=== PATIENT | female | born 1990 | race African-American/Black ===

== ENCOUNTER 2016-11-26 22:31 | Emergency (ER) | payer MEDICAID ==
[~2016-11-26] VITALS: Ht 160 cm; Wt 113.6 kg
[2016-11-26 22:34] VITALS: BP 129/87; PULSE 90; RESP 15; TEMP 99.3; O2SAT 98
[2016-11-26] MEDS ORDERED: METF500T PO (23:09)
[2016-11-26] MEDS ORDERED: PRED20 PO (23:09)
--- NOTE | 2016-11-26 23:50 | PD ---
HPI Chief Complaint: Back/ Neck Pain or Injury Time Seen by Provider: 23:35 Travel History International Travel<30 days: No Contact w/Intl Traveler<30days: No Traveled to known affect area: No History of Present Illness HPI 36-year-old female complains of headache, low back pain, dizziness and decrease in urine output. Patient states that she has persistent aching low back pain for the past 3 days. Patient states the pain is aching pain and worse with movement. Patient denies any recent back injury. Patient states that she started having headache since this morning. Patient states the headache mild aching headache frontal headache. Patient denies any visual change. Patient denies any neck pain. Patient denies any chest pain or shortness of breath. Patient denies abdominal pain. Patient denies any focal weakness or numbness of extremity. Patient states that she has history of lupus and on prednisone 20 mg daily. Patient has history of type 2 diabetes and on metformin. Patient states that she has not checked her blood sugar recently. PFSH Past Medical History Autoimmune Disease: Yes (LUPUS ) Diabetes: Yes Patient Takes Glucophage: Yes (METFORMIN ) Deep Vein Thrombosis: Yes Tetanus Vaccination: > 5 Years Influenza Vaccination: No ?: Not LMP: 09/17/2016 Past Surgical History Section: Yes (*2) Social History Alcohol Use: No Tobacco Use: No Substance Use: No Allergies-Medications (Allergen,Severity, Reaction): Coded Allergies: naproxen (Verified Allergy, Severe, 11/26/16) SOB. HIVES tramadol (Verified Allergy, Severe, 11/26/16) SOB, HIVES Reported Meds & Prescriptions Reported Meds & Active Scripts Active Reported Metformin (Metformin HCl) 500 Mg Tab 500 Mg PO BIDPC With meals Prednisone 20 Mg Tab 20 Mg PO BID Review of Systems General / Constitutional: No: Fever Eyes: No: Visual changes HENT: Positive: Headaches Cardiovascular: No: Chest Pain or Discomfort Respiratory: No: Shortness of Breath Gastrointestinal: No: Abdominal Pain Genitourinary: No: Dysuria Musculoskeletal: No: Pain Skin: No Rash Neurologic: No: Weakness Psychiatric: No: Depression Endocrine: No: Polydipsia Hematologic/Lymphatic: No: Easy Bruising Physical Exam Narrative GENERAL: Well-nourished, well-developed patient. SKIN: Focused skin assessment warm/dry. HEAD: Normocephalic. EYES: No scleral icterus. No injection or drainage. Pupils 3 mm equal reactive. NECK: Supple, trachea midline. No JVD or lymphadenopathy. No meningismus CARDIOVASCULAR: Regular rate and rhythm without murmurs, gallops, or rubs. RESPIRATORY: Breath sounds equal bilaterally. No accessory muscle use. GASTROINTESTINAL: Abdomen soft, non-tender, nondistended. MUSCULOSKELETAL: No cyanosis, or edema. BACK: Mild to moderate tenderness on palpation paraspinal area lumbar spine, without obvious deformity. No CVA tenderness. Negative straight leg raising. Neurologic exam: Patient's awake, alert oriented 3. No obvious focal neurological deficit. Data Data Last Documented VS Vital Signs Date Time Temp Pulse Resp B/P (MAP) Pulse Ox O2 Delivery O2 Flow Rate FiO2 11/26/16 23:05 (101) 11/26/16 22:34 99.3 90 15 98 Room Air Orders Orders Urinalysis - C+S If Indicated (11/26/16 23:42) Ed Urine Pregnancytest Poc (11/26/16 23:42) Ct Lumb Spine W/O Contrast (11/26/16 ) Labs Laboratory Tests Test 11/26/16 23:58 Urine Color YELLOW Urine Turbidity HAZY Urine pH 6.0 Urine Specific [place] 1.030 Urine Protein TRACE mg/dL Urine Glucose (UA) NEG mg/dL Urine Ketones NEG mg/dL Urine Occult Blood NEG Urine Nitrite NEG Urine Bilirubin NEG Urine Urobilinogen LESS THAN 2.0 MG/DL Urine Leukocyte Esterase NEG Urine RBC 1 /hpf Urine WBC 2 /hpf Urine Squamous Epithelial Cells 8 /hpf Urine Bacteria RARE /hpf Urine Mucus FEW /lpf Microscopic Urinalysis Comment CULT NOT INDICATED MDM Medical Decision Making Medical Screen Exam Complete: Yes Emergency Medical Condition: Yes Interpretation(s) Last Impressions Lumbar Spine CT 11/26/16 0000 Signed Impressions: Service Date/Time: Sunday, November 27, 2016 00:01 - CONCLUSION: Normal examination. Jose Herrera MD 1:22 AM. UA is negative. Differential Diagnosis Differential diagnosis including tension headache, cluster headache, migraine headache, lumbar strain, fracture, HNP, UTI, dehydration. Narrative Course 26-year-old female with headache, low back pain and decreasing urine output. Diagnosis Primary Impression: Lumbar strain Qualified Codes: S39.012A - Strain of muscle, fascia and tendon of lower back , initial encounter Additional Impression: Cephalgia Qualified Codes: R51 - Headache Patient Instructions: General Instructions Additional Instructions: Take medications as directed for pain and headache. Follow-up with personal physician. Return if worse. Med/Other Pt SpecificInfo: Prescription(s) given Scripts Methocarbamol (Robaxin) 750 Mg Tab 750 MG PO QID for Pain, #40 TAB 0 Refills Prov: Delvis Rivera MD 11/27/16 Nxekablixx-Wqkjrqjjcxtgm-Jhplysyd (Fioricet) 50-300-40 Mg Cap 1-2 CAP PO Q6H Y for HEADACHE, #20 CAP 0 Refills Prov: Delvis Rivera MD 11/27/16 Disposition: 01 DISCHARGE HOME Condition: Stable Delvis Rivera MD Nov 26, 2016 23:50
[2016-11-27 00:17] LABS: BACTERIA, URINE RARE /hpf; BLOOD, URINE NEG (NEG); GLUCOSE,URINE NEG (NEG); KETONE, URINE NEG (NEG); MUCUS URINE FEW /lpf (OCC); NITRITE,URINE NEG (NEG); SQUAMOUS EPITHELIAL CELL URINE 8 /hpf (0-5); URINE COLOR YELLOW (YELLW/STRAW)
[2016-11-27 00:18] LABS: COMMENT (UR) CULT NOT INDICATED; CULTURE IF INDICATED CULT NOT INDICATED
--- NOTE | 2016-11-27 00:27 | RADRPT ---
EXAM DATE/TIME: 11/27/2016 00:01 [facility] COMPARISON: No previous studies available for comparison. INDICATIONS : Lower back pain. RADIATION DOSE: 51.54 CTDIvol (mGy) ; Patient body habitus MEDICAL HISTORY : None SURGICAL HISTORY : None. ENCOUNTER: Initial ACUITY: 1 day PAIN SCALE: 7/10 LOCATION: Paraspinal TECHNIQUE: Volumetric scanning of the lumbar spine was performed. Multiplanar reconstructions in the sagittal, coronal and oblique axial planes were performed. Using automated exposure control and adjustment of the mA and/or kV according to patient size, radiation dose was kept as low as reasonably achievable t o obtain optimal diagnostic quality images. DICOM format image data is available electronically for review and comparison. FINDINGS: VERTEBRAE: Normal vertebral body height. ALIGNMENT: No evidence of subluxation. T12-L1: The thecal sac has a normal diameter. No evidence of disc bulge or protrusion. The neural foramina are patent bilaterally. L1-L2: The thecal sac has a normal diameter. No evidence of disc bulge or protrusion. The neural foramina are patent bilaterally. L2-L3: The thecal sac has a normal diameter. No evidence of disc bulge or protrusion. The neural foramina are patent bilaterally. L3-L4: The thecal sac has a normal diameter. No evidence of disc bulge or protrusion. The neural foramina are patent bilaterally. L4-L5: The thecal sac has a normal diameter. No evidence of disc bulge or protrusion. The neural foramina are patent bilaterally. L5-S1: The thecal sac has a normal diameter. No evidence of disc bulge or protrusion. The neural foramina are patent bilaterally. CONCLUSION: Normal examination. Jose Herrera MD on November 27, 2016 at 0:26 Board Certified Radiologist. This report was verified electronically.
[2016-11-27] MEDS ORDERED: BUTA1CAP PO (01:28)
[2016-11-27] MEDS ORDERED: ROBA750T PO (01:28)
[2016-11-27 02:06] VITALS: BP 124/56; PULSE 86; RESP 18; O2SAT 98
== END 2016-11-27 02:26 | disposition home or self-care (01) ==
LOC: NEPE 22:31
DX: S39.012A Strain of muscle, fascia and tendon of lower back, initial encounter (principal); R51 Headache; R42 Dizziness and giddiness; M32.9 Systemic lupus erythematosus, unspecified; E11.9 Type 2 diabetes mellitus without complications; Z86.718 Personal history of other venous thrombosis and embolism; X58.XXXA Exposure to other specified factors, initial encounter; Z79.899 Other long term (current) drug therapy; Z88.5 Allergy status to narcotic agent
CPT/HCPCS: 72131; 81001; 84703; 99284

== ENCOUNTER 2016-12-22 03:42 | Emergency (ER) | payer MEDICAID ==
[~2016-12-22 03:42] MED LIST: BUTA1CAP PO; METF500T PO; PRED20 PO; ROBA750T PO
[2016-12-22 03:43] VITALS: BP 127/83; PULSE 82; RESP 16; TEMP 97.8; O2SAT 98
--- NOTE | 2016-12-22 06:03 | PD ---
HPI Chief Complaint: Pain: Acute or Chronic Time Seen by Provider: 05:56 Travel History International Travel<30 days: No Contact w/Intl Traveler<30days: No History of Present Illness HPI The patient is a 26 year old female who presents to the [facility] emergency department with a history of reportedly explaining to the nurse that she was experiencing lupus flare. Unfortunately, prior to my assessment the patient, the patient decided to leave AGAINST MEDICAL ADVICE. PFSH Past Medical History Narrative Medical The patient's past medical history is significant for systemic lupus erythematosus, diabetes mellitus Autoimmune Disease: Yes (LUPUS ) Diabetes: Yes Patient Takes Glucophage: No Diminished Hearing: No Deep Vein Thrombosis: Yes Hypertension: Yes Tetanus Vaccination: Unknown Influenza Vaccination: No ?: Not LMP: 11/17/16 Past Surgical History Narrative Surgical The patient's past surgical history is significant for 2 prior C-sections. Section: Yes (*2) Social History Alcohol Use: No Tobacco Use: No Substance Use: No Allergies-Medications (Allergen,Severity, Reaction): Coded Allergies: naproxen (Verified Allergy, Severe, 12/22/16) SOB. HIVES tramadol (Verified Allergy, Severe, 12/22/16) SOB, HIVES Reported Meds & Prescriptions Reported Meds & Active Scripts Active Fioricet (Unxgmwtzwk-Trjdkvpnyzhnm-Ygvqdzmf) 50-300-40 Mg Cap 1-2 Cap PO Q6H PRN Reported Metformin (Metformin HCl) 500 Mg Tab 500 Mg PO BIDPC With meals Prednisone 20 Mg Tab 20 Mg PO BID Review of Systems ROS Limitations: Other: (left AMA) Physical Exam Exam Limitations: Left before Exam Complete Narrative The patient left prior to her physical examination being completed. Data Data Last Documented VS Vital Signs Date Time Temp Pulse Resp B/P (MAP) Pulse Ox O2 Delivery O2 Flow Rate FiO2 12/22/16 06:29 12/22/16 06:17 18 99 Room Air 12/22/16 03:43 97.8 82 Orders Orders Complete Blood Count With Diff (12/22/16 06:01) Comprehensive Metabolic Panel (12/22/16 06:01) Lipase (12/22/16 06:01) Urinalysis - C+S If Indicated (12/22/16 06:01) W[place]gren Sedimentation Rate (12/22/16 06:01) Magnesium (Mg) (12/22/16 06:01) Iv Access Insert/Monitor (12/22/16 06:01) Ecg Monitoring (12/22/16 06:01) Oximetry (12/22/16 06:01) Ed Urine Pregnancytest Poc (12/22/16 06:01) Labs Laboratory Tests Test 12/22/16 06:03 White Blood Count 5.0 TH/MM3 Red Blood Count 4.72 MIL/MM3 Hemoglobin 13.4 GM/DL Hematocrit 40.1 % Mean Corpuscular Volume 85.0 FL Mean Corpuscular Hemoglobin 28.5 PG Mean Corpuscular Hemoglobin Concent 33.5 % Red Cell Distribution Width 14.1 % Platelet Count 231 TH/MM3 Mean Platelet Volume 8.6 FL Neutrophils (%) (Auto) 63.5 % Lymphocytes (%) (Auto) 25.8 % Monocytes (%) (Auto) 7.1 % Eosinophils (%) (Auto) 3.2 % Basophils (%) (Auto) 0.4 % Neutrophils # (Auto) 3.2 TH/MM3 Lymphocytes # (Auto) 1.3 TH/MM3 Monocytes # (Auto) 0.4 TH/MM3 Eosinophils # (Auto) 0.2 TH/MM3 Basophils # (Auto) 0.0 TH/MM3 CBC Comment DIFF FINAL Differential Comment Erythrocyte Sedimentation Rate 28 mm/hr Urine Color YELLOW Urine Turbidity HAZY Urine pH 5.5 Urine Specific [place] 1.023 Urine Protein NEG mg/dL Urine Glucose (UA) NEG mg/dL Urine Ketones NEG mg/dL Urine Occult Blood NEG Urine Nitrite NEG Urine Bilirubin NEG Urine Urobilinogen LESS THAN 2.0 MG/DL Urine Leukocyte Esterase NEG Urine RBC LESS THAN 1 /hpf Urine WBC 1 /hpf Urine Squamous Epithelial Cells 5 /hpf Microscopic Urinalysis Comment CULT NOT INDICATED Blood Urea Nitrogen 13 MG/DL Creatinine 0.63 MG/DL Random Glucose 105 MG/DL Total Protein 7.1 GM/DL Albumin 3.1 GM/DL Calcium Level 8.3 MG/DL Magnesium Level 1.9 MG/DL Alkaline Phosphatase 57 U/L Aspartate Amino Transf (AST/SGOT) 19 U/L Alanine Aminotransferase (ALT/SGPT) 16 U/L Total Bilirubin 0.2 MG/DL Sodium Level 138 MEQ/L Potassium Level 3.8 MEQ/L Chloride Level 106 MEQ/L Carbon Dioxide Level 25.1 MEQ/L Anion Gap 7 MEQ/L Estimat Glomerular Filtration Rate 140 ML/MIN Lipase 254 U/L MDM Medical Decision Making Medical Screen Exam Complete: Yes Emergency Medical Condition: Yes Medical Record Reviewed: Yes Differential Diagnosis Viral syndrome, versus exacerbation of systemic lupus erythematosus, versus arthritis Narrative Course During the course of the patients emergency department visit, the patient had IV access obtained and blood work sent for analysis. The patients laboratory studies were pending at the time that the patient elected to leave AGAINST MEDICAL ADVICE. The patient reports that she has to take her children to school. She reports that she will follow-up with her primary care physician. AMA: The risks of leaving against medical advice without further evaluation treatment were discussed with the patient. These risks include cardiac dysfunction, cardiac dysrhythmia, possible heart attack, possible stroke or . The patient indicated understanding of these risks and appeared to have the capacity to make this decision. Diagnosis Primary Impression: Left against medical advice Referrals: Primary Care Physician 1 day Patient Instructions: General Instructions Med/Other Pt SpecificInfo: No Change to Meds Disposition: 07 AGAINST MEDICAL ADVICE Condition: Stable Prema Schneider MD Dec 22, 2016 06:03
[2016-12-22 06:17] VITALS: RESP 18; O2SAT 99
[2016-12-22 06:25] LABS: BLOOD, URINE NEG (NEG); GLUCOSE,URINE NEG (NEG); KETONE, URINE NEG (NEG); NITRITE,URINE NEG (NEG); PH, URINE 5.5 (5.0-8.5); SQUAMOUS EPITHELIAL CELL URINE 5 /hpf (0-5); URINE COLOR YELLOW (YELLW/STRAW)
[2016-12-22 06:27] LABS: COMMENT (UR) CULT NOT INDICATED; CULTURE IF INDICATED CULT NOT INDICATED
[2016-12-22 06:28] LABS: AUTOMATED NEUTROPHIL # 3.2 TH/MM3 (1.8-7.7); BASOPHIL % 0.4 % (0.0-2.0); EOSINOPHIL # 0.2 TH/MM3 (0-0.4); EOSINOPHIL % 3.2 % (0.0-4.0); HEMATOCRIT 40.1 % (35.0-46.0); HEMO FLAGS DIFF FINAL; LYMPH % 25.8 % (9.0-44.0); LYMPHOCYTE # 1.3 TH/MM3 (1.0-4.8); MEAN CORPUSCULAR HEMOGLOBIN 28.5 PG (27.0-34.0); MEAN CORPUSCULAR HGB CONC 33.5 % (32.0-36.0); MONO % 7.1 % (0.0-8.0); NEUT % 63.5 % (16.0-70.0); PLATELET COUNT 231 TH/MM3 (150-450); RED BLOOD COUNT 4.72 MIL/MM3 (4.00-5.30); RED CELL DISTRIBUTION WIDTH 14.1 % (11.6-17.2)
[2016-12-22 06:51] LABS: ALT (GPT) 16 U/L (10-53)
[2016-12-22 06:53] LABS: ALKALINE PHOSPHATASE 57 U/L (45-117); TOTAL BILIRUBIN ADULT 0.2 MG/DL (0.2-1.0)
[2016-12-22 06:56] LABS: ANION GAP 7 MEQ/L (5-15); AST (GOT) 19 U/L (15-37); BICARBONATE 25.1 MEQ/L (21.0-32.0); BLOOD UREA NITROGEN 13 MG/DL (7-18); CHLORIDE 106 MEQ/L (98-107); GLOMERULAR FILTRATION RATE 140 ML/MIN (>89); MAGNESIUM 1.9 MG/DL (1.5-2.5); POTASSIUM 3.8 MEQ/L (3.5-5.1); SODIUM (NA) 138 MEQ/L (136-145)
== END 2016-12-22 06:24 | disposition left against medical advice (07) ==
LOC: NEPC 03:42
DX: M32.9 Systemic lupus erythematosus, unspecified (principal); E11.9 Type 2 diabetes mellitus without complications; I10 Essential (primary) hypertension; Z79.899 Other long term (current) drug therapy; Z88.5 Allergy status to narcotic agent; Z86.718 Personal history of other venous thrombosis and embolism; Z88.6 Allergy status to analgesic agent
CPT/HCPCS: 80053; 81001; 83690; 83735; 84703; 85025; 85652; 99283

== ENCOUNTER 2017-02-08 13:17 | Emergency (ER) | payer MEDICAID ==
[~2017-02-08 13:17] MED LIST changes: -ROBA750T PO
[2017-02-08 13:26] VITALS: BP 126/73; PULSE 72; RESP 15; TEMP 98.2; O2SAT 98
[2017-02-08] MEDS ORDERED: PRED10 PO (14:10)
[2017-02-08] MEDS ORDERED: TYLETAB34 PO (14:10)
[2017-02-08] MEDS ORDERED: RANI150T PO (14:10)
[2017-02-08] MEDS ORDERED: METO25TA3 PO (14:10)
[2017-02-08] MEDS ORDERED: ASPI81TA81 (14:10)
[2017-02-08 14:13] LABS: AUTOMATED NEUTROPHIL # 6.2 TH/MM3 (1.8-7.7); BASOPHIL % 0.3 % (0.0-2.0); EOSINOPHIL % 0.1 % (0.0-4.0); HEMATOCRIT 41.2 % (35.0-46.0); HEMO FLAGS DIFF FINAL; LYMPH % 7.3 % (9.0-44.0); LYMPHOCYTE # 0.5 TH/MM3 (1.0-4.8); MEAN CELL VOLUME 84.2 FL (80.0-100.0); MEAN CORPUSCULAR HEMOGLOBIN 27.9 PG (27.0-34.0); MEAN CORPUSCULAR HGB CONC 33.2 % (32.0-36.0); MONO % 1.1 % (0.0-8.0); NEUT % 91.2 % (16.0-70.0); PLATELET COUNT 287 TH/MM3 (150-450); WHITE BLOOD COUNT 6.8 TH/MM3 (4.0-11.0)
[2017-02-08] MEDS ORDERED: SODIUM CHLOR 0.9% 1000 ML INJ 1,000 ML IV SCH (14:16)
[2017-02-08 14:27] LABS: BICARBONATE 25.2 MEQ/L (21.0-32.0); POTASSIUM 3.6 MEQ/L (3.5-5.1)
[2017-02-08] MEDS ORDERED: MECLIZINE HCL 25 MG TAB PO ONE (14:30)
--- NOTE | 2017-02-08 14:55 | RADRPT ---
EXAM DATE/TIME: 02/08/2017 14:33 [facility] COMPARISON: No previous studies available for comparison. INDICATIONS : Patient states shortness of breath. MEDICAL HISTORY : Diabetes mellitus type II. Hypertension Lupus SURGICAL HISTORY : None. ENCOUNTER: Initial ACUITY: 1 day PAIN SCORE: 0/10 LOCATION: Bilateral chest FINDINGS: A single view of the chest demonstrates the lungs to be symmetrically aerated without evidence of mas s, infiltrate or effusion. The cardiomediastinal contours are unremarkable. Osseous structures are intact. CONCLUSION: No acute disease. Camron Correa MD on February 08, 2017 at 14:53 Board Certified Radiologist. This report was verified electronically.
[2017-02-08 15:01] LABS: BACTERIA, URINE OCC /hpf; BLOOD, URINE LARGE (NEG); COMMENT (UR) CULT NOT INDICATED; CULTURE IF INDICATED CULT NOT INDICATED; GLUCOSE,URINE NEG (NEG); KETONE, URINE NEG (NEG); MUCUS URINE FEW /lpf (OCC); NITRITE,URINE NEG (NEG); PH, URINE 6.5 (5.0-8.5); SQUAMOUS EPITHELIAL CELL URINE 10 /hpf (0-5); URINE COLOR YELLOW (YELLW/STRAW)
[2017-02-08 15:02] VITALS: BP 105/66; PULSE 55; RESP 22; TEMP 98.4; O2SAT 98
--- NOTE | 2017-02-08 15:45 | PD ---
HPI Chief Complaint: Dizziness Time Seen by Provider: 14:01 Travel History International Travel<30 days: No Contact w/Intl Traveler<30days: No Traveled to known affect area: No History of Present Illness HPI 26-year-old female that presents to the ED for evaluation of dizziness. Patient came here by ambulance for evaluation of this. 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 She states that she started feeling like a burning sensation in her body as well as the difficulty breathing but no pain on her chest. She states that this improved the dizziness is still present. She denies nausea or vomiting but states that whenever she stands she feels like the room spinning. She's had this before but she's never been diagnosed with anything. She does have a history of lupus, diabetes and GERD. States compliance with her medications for this. She states that currently she has no pain. She states that she feels like whenever she takes a deep breath she can take a full deep breath and feels somewhat short of breath because of this. She has a recent travel. No blood thinner. No . Allergies to naproxen and tramadol. Symptoms started an hour before coming. PFSH Past Medical History Autoimmune Disease: Yes (LUPUS ) Cardiovascular Problems: Yes (HTN) Diabetes: Yes Patient Takes Glucophage: Yes Diminished Hearing: No Deep Vein Thrombosis: Yes GERD: Yes Hypertension: Yes ?: Not LMP: now Past Surgical History Surgical History: No Previous Surgery Section: Yes (X2) Social History Alcohol Use: No Tobacco Use: No Substance Use: No Allergies-Medications (Allergen,Severity, Reaction): Coded Allergies: naproxen (Verified Allergy, Severe, 12/22/16) SOB. HIVES tramadol (Verified Allergy, Severe, 12/22/16) SOB, HIVES Reported Meds & Prescriptions Reported Meds & Active Scripts Active Fioricet (Wxvawopphi-Eplczvwimpniq-Xkrndkky) 50-300-40 Mg Cap 1-2 Cap PO Q6H PRN Reported Metoprolol Tartrate 25 Mg Tab 25 Mg PO DAILY Ranitidine (Ranitidine HCl) 150 Mg Tab 150 Mg PO BID Tylenol-Codeine #3 (Acetaminophen-Codeine) 300-30 mg Tab 1 Tab PO Q6HR PRN Aspir-81 (Aspirin) 81 Mg Tabdr Prednisone 10 Mg Tab 10 Mg PO BID Metformin (Metformin HCl) 500 Mg Tab 500 Mg PO BIDPC With meals Review of Systems Except as stated in HPI: all other systems reviewed are Neg Physical Exam Narrative GENERAL: SKIN: Warm and dry. HEAD: Atraumatic. Normocephalic. EYES: Pupils equal and round 4 mm reactive to light and accommodation. No scleral icterus. No injection or drainage. ENT: No nasal bleeding or discharge. Mucous membranes pink and moist. Tongue is midline. No uvula deviation. NECK: Trachea midline. No JVD. CARDIOVASCULAR: Regular rate and rhythm. No murmurs, S3, S4. RESPIRATORY: No accessory muscle use. Clear to auscultation. Breath sounds equal bilaterally. GASTROINTESTINAL: Abdomen soft, non-tender, nondistended. Hepatic and splenic margins not palpable. MUSCULOSKELETAL: Extremities without clubbing, cyanosis, or edema. No obvious deformities. Full range of motion of the upper and lower extremities bilaterally. 2+ pulses bilaterally. NEUROLOGICAL: Awake and alert. No obvious cranial nerve deficits. Motor grossly within normal limits. Five out of 5 muscle strength in the arms and legs. Normal speech. PSYCHIATRIC: Appropriate mood and affect; insight and judgment normal. Data Data Last Documented VS Vital Signs Date Time Temp Pulse Resp B/P (MAP) Pulse Ox O2 Delivery O2 Flow Rate FiO2 02/08/17 15:02 98.4 55 22 105/66 (79) 98 Room Air Orders Orders Electrocardiogram (02/08/17 13:30) Basic Metabolic Panel (Bmp) (02/08/17 13:30) Ed Urine Pregnancytest Poc (02/08/17 13:30) Complete Blood Count With Diff (02/08/17 13:30) Urinalysis - C+S If Indicated (02/08/17 13:30) Troponin I (02/08/17 14:16) D-Dimer (02/08/17 14:16) Orthostatic Vital Signs (02/08/17 14:16) Sodium Chlor 0.9% 1000 Ml Inj (Ns 1000 M (02/08/17 14:16) Meclizine (Antivert) (02/08/17 14:30) Chest, Single Ap (02/08/17 ) Ct Pulmonary Angiogram (02/08/17 ) Labs Laboratory Tests Test 02/08/17 13:53 02/08/17 14:30 White Blood Count 6.8 TH/MM3 Red Blood Count 4.90 MIL/MM3 Hemoglobin 13.7 GM/DL Hematocrit 41.2 % Mean Corpuscular Volume 84.2 FL Mean Corpuscular Hemoglobin 27.9 PG Mean Corpuscular Hemoglobin Concent 33.2 % Red Cell Distribution Width 14.0 % Platelet Count 287 TH/MM3 Mean Platelet Volume 8.0 FL Neutrophils (%) (Auto) 91.2 % Lymphocytes (%) (Auto) 7.3 % Monocytes (%) (Auto) 1.1 % Eosinophils (%) (Auto) 0.1 % Basophils (%) (Auto) 0.3 % Neutrophils # (Auto) 6.2 TH/MM3 Lymphocytes # (Auto) 0.5 TH/MM3 Monocytes # (Auto) 0.1 TH/MM3 Eosinophils # (Auto) 0.0 TH/MM3 Basophils # (Auto) 0.0 TH/MM3 CBC Comment DIFF FINAL Differential Comment Blood Urea Nitrogen 11 MG/DL Creatinine 0.82 MG/DL Random Glucose 159 MG/DL Calcium Level 8.3 MG/DL Sodium Level 140 MEQ/L Potassium Level 3.6 MEQ/L Chloride Level 106 MEQ/L Carbon Dioxide Level 25.2 MEQ/L Anion Gap 9 MEQ/L Estimat Glomerular Filtration Rate 104 ML/MIN D-Dimer Quantitative (PE/DVT) 0.77 MG/L FEU Urine Color YELLOW Urine Turbidity HAZY Urine pH 6.5 Urine Specific [place] 1.011 Urine Protein 30 mg/dL Urine Glucose (UA) NEG mg/dL Urine Ketones NEG mg/dL Urine Occult Blood LARGE Urine Nitrite NEG Urine Bilirubin NEG Urine Urobilinogen LESS THAN 2.0 MG/DL Urine Leukocyte Esterase TRACE Urine RBC 1 /hpf Urine WBC 2 /hpf Urine Squamous Epithelial Cells 10 /hpf Urine Amorphous Sediment FEW Urine Bacteria OCC /hpf Urine Mucus FEW /lpf Microscopic Urinalysis Comment CULT NOT INDICATED Troponin I LESS THAN 0.02 NG/ML MDM Medical Decision Making Medical Screen Exam Complete: Yes Emergency Medical Condition: Yes Medical Record Reviewed: Yes Interpretation(s) CBC & BMP Diagram 02/08/17 13:53 Calcium Level 8.3 L EKG shows sinus bradycardia but no sign of acute ischemia or arrhythmia. Read by me and attending. Troponin was negative. D-dimer was slightly positive. Differential Diagnosis Syncope versus presyncope versus dizziness versus vertigo versus dehydration versus anxiety versus PE less likely Narrative Course 26-year-old female that presents to the ED for evaluation of dizziness. Patient was properly examined and was found to have signs and symptoms of unclear etiology possible related to vertigo. She does appear to have some anxiety and exam. Labs and imaging were ordered. D-dimer was ordered secondary to the patient's symptoms to rule out PE. D-dimer was positive and she does appear to have possible UTI. Pulmonary exam was ordered as I cannot completely rule out PE. She was given meclizine as well as 1 L of fluids. Labs and imaging showed Fab Lam Feb 08, 2017 15:45
[2017-02-08] MEDS ORDERED: IOHEXOL 350 MG/ML 10 ML VIAL (for RAD DIAG) IVCONTRAST ONE (15:47)
[2017-02-08 16:10] VITALS: BP_SYST 108; BP_SYST 123; BP_SYST 132; BP_DIAS 64; BP_DIAS 82; BP_DIAS 89; RESP 20; RESP 21; RESP 22
--- NOTE | 2017-02-08 16:12 | RADRPT ---
EXAM DATE/TIME: 02/08/2017 15:31 [facility] COMPARISON: No previous studies available for comparison. INDICATIONS : Shortness of breath and left sided chest pain today. IV CONTRAST: 71 cc Omnipaque 350 (iohexol) IV RADIATION DOSE: 25.85 CTDIvol (mGy) ; Patient body habitus MEDICAL HISTORY : Hypertension. Lupus. deep vein thrombosis, diabetes SURGICAL HISTORY : section. ENCOUNTER: Initial ACUITY: 1 day PAIN SCALE: 4/10 LOCATION: Left chest TECHNIQUE: Volumetric scanning of the chest was performed using a pulmonary embolism protocol MIP images were re constructed. Using automated exposure control and adjustment of the mA and/or kV according to patien t size, radiation dose was kept as low as reasonably achievable to obtain optimal diagnostic quality images. DICOM format image data is available electronically for review and comparison. Follow-up recommendations for detected pulmonary nodules are based at a minimum on nodule size and pa tient risk factors according to Fleischner Society Guidelines. FINDINGS: PULMONARY ARTERIES: The pulmonary arteries are visualized to the very proximal subsegmental without evidence for intralum inal filling defect. More distal pulmonary artery branches are suboptimally visualized. LUNGS: Minimal scattered groundglass opacities, likely reflecting volume loss. PLEURAE: There is no pleural thickening or pleural effusion. MEDIASTINUM: There is good visualization of the great vessels of the middle mediastinum. No evidence of mediastin al or hilar adenopathy/mass. MUSCULOSKELETAL: Within normal limits for patient age. MISCELLANEOUS: Visualized portions of the upper abdomen demonstrate diffusely decreased hepatic density consistent w ith hepatic steatosis. Multiple subcentimeter bilateral axillary nodes are likely reactive. CONCLUSION: 1. No CT evidence for pulmonary artery embolism to the very proximal subsegmental level. More distal segmental branches are suboptimally visualized. 2. No acute abnormality in the thorax. 3. Hepatic steatosis. Yrn Portillo MD on February 08, 2017 at 15:52 Board Certified Radiologist. This report was verified electronically.
--- NOTE | 2017-02-08 16:26 | PD ---
HPI Chief Complaint: Dizziness Time Seen by Provider: 14:01 Travel History International Travel<30 days: No Contact w/Intl Traveler<30days: No Traveled to known affect area: No History of Present Illness HPI 26-year-old female that presents to the ED for evaluation of dizziness. Patient came here via was for evaluation of this. Per patient for 1 hour before coming to the ED she started having an episode of acute dizziness where the room was spinning with chest burning as well as sensation of being hot. Per patient the chest burning and sensation of being hot and has since improved but she still feels dizzy. She states that he gets worse when she stands up. She denies any chest pain at this time but states that whenever she takes a deep breath she feels like she cannot get a full breath. She has not seen anybody for this. She states that she's had episodes like this before but usually go on their own. She has never been diagnosed with anything. She denies any cough or runny nose. No fevers chills or sweats. Allergies to naproxen and tramadol. She does have a history of lupus, GERD, diabetes taking no insulin. States that she checked her sugar and it was normal. Denies any history of ACS. No other medical issues at this time. Denies any drugs or alcohol. PFSH Past Medical History Autoimmune Disease: Yes (LUPUS ) Cardiovascular Problems: Yes (HTN) Diabetes: Yes Patient Takes Glucophage: Yes Diminished Hearing: No Deep Vein Thrombosis: Yes GERD: Yes Hypertension: Yes ?: Not LMP: now Past Surgical History Surgical History: No Previous Surgery Section: Yes (X2) Social History Alcohol Use: No Tobacco Use: No Substance Use: No Allergies-Medications (Allergen,Severity, Reaction): Coded Allergies: naproxen (Verified Allergy, Severe, 12/22/16) SOB. HIVES tramadol (Verified Allergy, Severe, 12/22/16) SOB, HIVES Reported Meds & Prescriptions Reported Meds & Active Scripts Active Fioricet (Kzradllvte-Wvxrfqtcipepf-Xchuyimd) 50-300-40 Mg Cap 1-2 Cap PO Q6H PRN Reported Metoprolol Tartrate 25 Mg Tab 25 Mg PO DAILY Ranitidine (Ranitidine HCl) 150 Mg Tab 150 Mg PO BID Tylenol-Codeine #3 (Acetaminophen-Codeine) 300-30 mg Tab 1 Tab PO Q6HR PRN Aspir-81 (Aspirin) 81 Mg Tabdr Prednisone 10 Mg Tab 10 Mg PO BID Metformin (Metformin HCl) 500 Mg Tab 500 Mg PO BIDPC With meals Review of Systems Except as stated in HPI: all other systems reviewed are Neg Physical Exam Narrative GENERAL: SKIN: Warm and dry. HEAD: Atraumatic. Normocephalic. EYES: Pupils equal and round 4 mm reactive to light and accommodation. No scleral icterus. No injection or drainage. ENT: No nasal bleeding or discharge. Mucous membranes pink and moist. Tongue is midline. No uvula deviation. NECK: Trachea midline. No JVD. CARDIOVASCULAR: Regular rate and rhythm. No murmurs, S3, S4. RESPIRATORY: No accessory muscle use. Clear to auscultation. Breath sounds equal bilaterally. GASTROINTESTINAL: Abdomen soft, non-tender, nondistended. Hepatic and splenic margins not palpable. MUSCULOSKELETAL: Extremities without clubbing, cyanosis, or edema. No obvious deformities. Full range of motion of the upper and lower extremities bilaterally. 2+ pulses bilaterally. NEUROLOGICAL: Awake and alert. No obvious cranial nerve deficits. Motor grossly within normal limits. Five out of 5 muscle strength in the arms and legs. Normal speech. PSYCHIATRIC: Appropriate mood and affect; insight and judgment normal. Data Data Last Documented VS Vital Signs Date Time Temp Pulse Resp B/P (MAP) Pulse Ox O2 Delivery O2 Flow Rate FiO2 02/08/17 16:10 59 22 108/64 (79) 64 20 123/89 (100) 70 21 132/82 (99) 02/08/17 15:02 98.4 98 Room Air Orders Orders Electrocardiogram (02/08/17 13:30) Basic Metabolic Panel (Bmp) (02/08/17 13:30) Ed Urine Pregnancytest Poc (02/08/17 13:30) Complete Blood Count With Diff (02/08/17 13:30) Urinalysis - C+S If Indicated (02/08/17 13:30) Troponin I (02/08/17 14:16) D-Dimer (02/08/17 14:16) Orthostatic Vital Signs (02/08/17 14:16) Sodium Chlor 0.9% 1000 Ml Inj (Ns 1000 M (02/08/17 14:16) Meclizine (Antivert) (02/08/17 14:30) Chest, Single Ap (02/08/17 ) Ct Pulmonary Angiogram (02/08/17 ) Iohexol 350 Inj (Omnipaque 350 Inj) (02/08/17 15:47) Ed Discharge Order (02/08/17 16:16) Labs Laboratory Tests Test 02/08/17 13:53 02/08/17 14:30 White Blood Count 6.8 TH/MM3 Red Blood Count 4.90 MIL/MM3 Hemoglobin 13.7 GM/DL Hematocrit 41.2 % Mean Corpuscular Volume 84.2 FL Mean Corpuscular Hemoglobin 27.9 PG Mean Corpuscular Hemoglobin Concent 33.2 % Red Cell Distribution Width 14.0 % Platelet Count 287 TH/MM3 Mean Platelet Volume 8.0 FL Neutrophils (%) (Auto) 91.2 % Lymphocytes (%) (Auto) 7.3 % Monocytes (%) (Auto) 1.1 % Eosinophils (%) (Auto) 0.1 % Basophils (%) (Auto) 0.3 % Neutrophils # (Auto) 6.2 TH/MM3 Lymphocytes # (Auto) 0.5 TH/MM3 Monocytes # (Auto) 0.1 TH/MM3 Eosinophils # (Auto) 0.0 TH/MM3 Basophils # (Auto) 0.0 TH/MM3 CBC Comment DIFF FINAL Differential Comment Blood Urea Nitrogen 11 MG/DL Creatinine 0.82 MG/DL Random Glucose 159 MG/DL Calcium Level 8.3 MG/DL Sodium Level 140 MEQ/L Potassium Level 3.6 MEQ/L Chloride Level 106 MEQ/L Carbon Dioxide Level 25.2 MEQ/L Anion Gap 9 MEQ/L Estimat Glomerular Filtration Rate 104 ML/MIN D-Dimer Quantitative (PE/DVT) 0.77 MG/L FEU Urine Color YELLOW Urine Turbidity HAZY Urine pH 6.5 Urine Specific [place] 1.011 Urine Protein 30 mg/dL Urine Glucose (UA) NEG mg/dL Urine Ketones NEG mg/dL Urine Occult Blood LARGE Urine Nitrite NEG Urine Bilirubin NEG Urine Urobilinogen LESS THAN 2.0 MG/DL Urine Leukocyte Esterase TRACE Urine RBC 1 /hpf Urine WBC 2 /hpf Urine Squamous Epithelial Cells 10 /hpf Urine Amorphous Sediment FEW Urine Bacteria OCC /hpf Urine Mucus FEW /lpf Microscopic Urinalysis Comment CULT NOT INDICATED Troponin I LESS THAN 0.02 NG/ML MDM Medical Decision Making Medical Screen Exam Complete: Yes Emergency Medical Condition: Yes Medical Record Reviewed: Yes Interpretation(s) Last Impressions Chest X-Ray 02/08/17 0000 Signed Impressions: Service Date/Time: Wednesday, February 08, 2017 14:33 - CONCLUSION: No acute disease. Camron Correa MD CT Angiography 02/08/17 0000 Signed Impressions: Service Date/Time: Wednesday, February 08, 2017 15:31 - CONCLUSION: 1. No CT evidence for pulmonary artery embolism to the very proximal subsegmental level. More distal segmental branches are suboptimally visualized. 2. No acute abnormality in the thorax. 3. Hepatic steatosis. Yrn Portillo MD CBC & BMP Diagram 02/08/17 13:53 Calcium Level 8.3 L Troponin negative. D-dimer slightly positive. UA shows possible UTI EKG shows sinus rhythm with no sign of acute ischemia or arrhythmia read by me and attending. Differential Diagnosis Dizziness versus vertigo versus anxiety versus ACS versus dehydration versus less likely PE Narrative Course 26-year-old female that presents to the ED for evaluation of dizziness. Patient was properly examined and was found to have signs and symptoms consistent with appears to be possible vertigo. Labs and imaging were ordered. Labs and imaging were essentially negative except for positive d-dimer as well as possible UTI. CT pulmonary and was ordered to rule out PE. This was negative as well. Patient was given meclizine with some results. Orthostatics were within normal limits. At this time I recommend close follow-up outpatient. Patient was given a prescription for meclizine as well as for Macrobid. Told to follow closely with PCP. See ED for worsening symptoms. Given note for work. preg test negative Diagnosis Primary Impression: Vertigo Additional Impression: UTI (urinary tract infection) Qualified Codes: N30.01 - Acute cystitis with hematuria Patient Instructions: General Instructions Departure Forms: Tests/Procedures, Work Release Enter return to work date: Feb 10, 2017 Additional Instructions: Take medications as prescribed. Follow-up with PCP. See ED worsening symptoms. Take plenty of fluids. Med/Other Pt SpecificInfo: Prescription(s) given Disposition: DISCHARGE HOME Condition: Stable Fab Lam Feb 08, 2017 16:26
[2017-02-08] MEDS ORDERED: MECL-62 PO (16:27)
[2017-02-08] MEDS ORDERED: MACR100C2 PO (16:27)
--- NOTE | 2017-02-09 20:07 | EKG ---
Date Performed: 02/08/2017 Time Performed: 14:25:37 PTAGE: 26 years EKG: SINUS BRADYCARDIA MODERATE INTRAVENTRICULAR CONDUCTION DELAY Compared to prior tracing no s ignificant change BORDERLINE ECG NO PREVIOUS TRACING DOCTOR: Lesly Bansal Interpretating Date/Time 02/09/2017 20:06:44
== END 2017-02-08 17:16 | disposition home or self-care (01) ==
LOC: NEPC 13:17
DX: R42 Dizziness and giddiness (principal); N30.01 Acute cystitis with hematuria; I10 Essential (primary) hypertension; M32.9 Systemic lupus erythematosus, unspecified; K76.0 Fatty (change of) liver, not elsewhere classified; R06.02 Shortness of breath; E11.9 Type 2 diabetes mellitus without complications; Z79.84 Long term (current) use of oral hypoglycemic drugs
CPT/HCPCS: 71010; 71275; 80048; 81001; 84484; 84703; 85025; 85379; 93005; 96360; 96361; 99285; J7030; Q9967

== ENCOUNTER 2017-02-13 20:27 | Emergency (ER) | payer MEDICAID ==
[~2017-02-13] VITALS: Ht 160 cm; Wt 108.0 kg
[~2017-02-13 20:27] MED LIST changes: +ASPI81TA81; +MACR100C2 PO; +MECL-62 PO; +METO25TA3 PO; +PRED10 PO; -PRED20 PO; +RANI150T PO; +TYLETAB34 PO
[2017-02-13 20:30] VITALS: BP 133/83; PULSE 88; RESP 16; TEMP 99; O2SAT 100
[2017-02-13] MEDS ORDERED: SODIUM CHLOR 0.9% 1000 ML INJ 1,000 ML IV SCH (20:46)
--- NOTE | 2017-02-13 20:51 | PD ---
HPI Chief Complaint: Pain: Acute or Chronic Time Seen by Provider: 20:42 Travel History International Travel<30 days: No Contact w/Intl Traveler<30days: No Traveled to known affect area: No History of Present Illness HPI Patient comes in complaining of generalized body aches along with cramping in her legs and arms ongoing for the past 3 days. Patient states she's had similar happen to her in the past secondary to hypokalemia. Patient states she' s been drinking banana smoothies the past 3 days trying to get her potassium up , however patient continues to have the pain and cramps. Patient denies any fevers, nausea, vomiting, chest pain, shortness of breath, loss change in bowel or bladder, headaches, or . Denies anything making this better or worse. Patient reports the last time she had to go to the Hospital for this in December of this year. Patient reports blood sugars have been running in the 120s. PFSH Past Medical History Autoimmune Disease: Yes (LUPUS ) Cardiovascular Problems: Yes (HTN) Diabetes: Yes Patient Takes Glucophage: Yes (02/16/2017) Diminished Hearing: No Deep Vein Thrombosis: Yes GERD: Yes Hypertension: Yes Tetanus Vaccination: Unknown ?: Not LMP: 02/07/2017 Past Surgical History Section: Yes (X2) Social History Alcohol Use: No Tobacco Use: No Substance Use: No Allergies-Medications (Allergen,Severity, Reaction): Coded Allergies: naproxen (Verified Allergy, Severe, 02/13/17) SOB. HIVES tramadol (Verified Allergy, Severe, 02/13/17) SOB, HIVES Reported Meds & Prescriptions Reported Meds & Active Scripts Active Flexeril (Cyclobenzaprine HCl) 10 Mg Tab 10 Mg PO Q8HR PRN Meclizine (Meclizine HCl) 25 Mg Tab 25 Mg PO TID PRN Macrobid (Nitrofurantoin Monoh/Nitrofur Macro) 100 Mg Cap 100 Mg PO BID 10 Days Fioricet (Nuibjepyfs-Wqslpbwqsbzwa-Wfjsryhz) 50-300-40 Mg Cap 1-2 Cap PO Q6H PRN Reported Metoprolol Tartrate 25 Mg Tab 25 Mg PO DAILY Ranitidine (Ranitidine HCl) 150 Mg Tab 150 Mg PO BID Tylenol-Codeine #3 (Acetaminophen-Codeine) 300-30 mg Tab 1 Tab PO Q6HR PRN Aspir-81 (Aspirin) 81 Mg Tabdr Prednisone 10 Mg Tab 10 Mg PO BID Metformin (Metformin HCl) 500 Mg Tab 500 Mg PO BIDPC With meals Review of Systems Except as stated in HPI: all other systems reviewed are Neg Physical Exam Narrative GENERAL: Well-developed, overly nourished, in no acute distress, and non-ill appearing. SKIN: Focused skin assessment warm and dry. HEAD: Atraumatic. Normocephalic. EYES: Pupils equal and round. EOMI. No scleral icterus. No injection or drainage. ENT: No nasal bleeding or discharge. Mucous membranes pink and moist. NECK: Trachea midline. Supple. No nuclear rigidity. CARDIOVASCULAR: Regular rate and rhythm. No murmur appreciated. RESPIRATORY: No accessory muscle use. No respiratory distress. Clear to auscultation. Breath sounds equal bilaterally. MUSCULOSKELETAL: No obvious deformities. No clubbing. No cyanosis. No edema. Full range of motion. NEUROLOGICAL: Awake and alert. No obvious cranial nerve deficits. Motor grossly within normal limits. Normal speech. PSYCHIATRIC: Appropriate mood and affect; insight and judgment normal. Data Data Last Documented VS Vital Signs Date Time Temp Pulse Resp B/P (MAP) Pulse Ox O2 Delivery O2 Flow Rate FiO2 02/13/17 22:27 02/13/17 20:53 100 Room Air 02/13/17 20:30 99.0 88 16 Orders Orders Basic Metabolic Panel (Bmp) (02/13/17 20:46) Complete Blood Count With Diff (02/13/17 20:46) Urinalysis - C+S If Indicated (02/13/17 20:46) Iv Access Insert/Monitor (02/13/17 20:46) Ecg Monitoring (02/13/17 20:46) Oximetry (02/13/17 20:46) Sodium Chlor 0.9% 1000 Ml Inj (Ns 1000 M (02/13/17 20:46) Sodium Chloride 0.9% Flush (Ns Flush) (02/13/17 21:00) Creatine Kinase (Cpk) (02/13/17 20:46) Magnesium (Mg) (02/13/17 20:46) Ed Urine Pregnancytest Poc (02/13/17 21:54) Ed Discharge Order (02/13/17 22:17) Labs Laboratory Tests Test 02/13/17 21:00 White Blood Count 6.1 TH/MM3 Red Blood Count 4.75 MIL/MM3 Hemoglobin 13.5 GM/DL Hematocrit 40.4 % Mean Corpuscular Volume 85.1 FL Mean Corpuscular Hemoglobin 28.4 PG Mean Corpuscular Hemoglobin Concent 33.4 % Red Cell Distribution Width 14.1 % Platelet Count 277 TH/MM3 Mean Platelet Volume 8.7 FL Neutrophils (%) (Auto) 69.0 % Lymphocytes (%) (Auto) 22.4 % Monocytes (%) (Auto) 6.4 % Eosinophils (%) (Auto) 1.8 % Basophils (%) (Auto) 0.4 % Neutrophils # (Auto) 4.2 TH/MM3 Lymphocytes # (Auto) 1.4 TH/MM3 Monocytes # (Auto) 0.4 TH/MM3 Eosinophils # (Auto) 0.1 TH/MM3 Basophils # (Auto) 0.0 TH/MM3 CBC Comment DIFF FINAL Differential Comment Urine Color YELLOW Urine Turbidity CLEAR Urine pH 6.5 Urine Specific [place] 1.028 Urine Protein TRACE mg/dL Urine Glucose (UA) NEG mg/dL Urine Ketones NEG mg/dL Urine Occult Blood NEG Urine Nitrite NEG Urine Bilirubin NEG Urine Urobilinogen LESS THAN 2.0 MG/DL Urine Leukocyte Esterase NEG Urine RBC LESS THAN 1 /hpf Urine WBC LESS THAN 1 /hpf Urine Squamous Epithelial Cells 2 /hpf Urine Mucus FEW /lpf Microscopic Urinalysis Comment CULT NOT INDICATED Blood Urea Nitrogen 10 MG/DL Creatinine 0.69 MG/DL Random Glucose 108 MG/DL Calcium Level 8.2 MG/DL Magnesium Level 2.0 MG/DL Sodium Level 139 MEQ/L Potassium Level 3.5 MEQ/L Chloride Level 105 MEQ/L Carbon Dioxide Level 26.1 MEQ/L Anion Gap 8 MEQ/L Estimat Glomerular Filtration Rate 126 ML/MIN Total Creatine Kinase 74 U/L [facility] Medical Decision Making Medical Screen Exam Complete: Yes Emergency Medical Condition: Yes Differential Diagnosis Rhabdomyolysis, metabolic disturbance, dehydration, UTI, acute kidney injury, other Narrative Course Patient in no obvious distress upon re-evaluation. All pertinent laboratory result(s) discussed with patient. Discussed patient with Dr. Tran prior to discharge, who is in agreement with plan of care and disposition. Patient was asked if they wanted to speak to my attending, which the patient did not wish to do at this time. Any questions/concerns in reference to patient diagnosis/ condition discussed and clarified prior to patient's discharge. Reinforced sheer importance of close follow up with patient's primary physician or primary care clinic. Instructed patient to return to ED immediately, if symptoms return/ worsen. Patient showed understanding of above instructions. Further instructions and recommendations were detailed in discharge paperwork. Patient ambulated without difficulty out of ED at discharge. Diagnosis Primary Impression: Muscle cramping Referrals: [facility] Patient Instructions: General Instructions, Muscle Cramp (ED) Additional Instructions: Follow-up with your primary care physician as scheduled for further evaluation. Take all medication as prescribed. Return to the emergency department if symptoms get worse. Med/Other Pt SpecificInfo: Prescription(s) given Scripts Cyclobenzaprine (Flexeril) 10 Mg Tab 10 MG PO Q8HR Y for MUSCLE PAIN, #9 TAB 0 Refills Prov: Dorian Tran MD 02/13/17 Disposition: 01 DISCHARGE HOME Condition: Stable Jacob Valdivia Feb 13, 2017 20:51
[2017-02-13 20:53] VITALS: O2SAT 100
[2017-02-13] MEDS ORDERED: SODIUM CHLORIDE 0.9% FLUSH 10 ML FLUSH IV FLUSH PRN (21:00)
[2017-02-13 21:32] LABS: AUTOMATED NEUTROPHIL # 4.2 TH/MM3 (1.8-7.7); BASOPHIL % 0.4 % (0.0-2.0); EOSINOPHIL # 0.1 TH/MM3 (0-0.4); EOSINOPHIL % 1.8 % (0.0-4.0); HEMATOCRIT 40.4 % (35.0-46.0); HEMO FLAGS DIFF FINAL; LYMPH % 22.4 % (9.0-44.0); LYMPHOCYTE # 1.4 TH/MM3 (1.0-4.8); MEAN CELL VOLUME 85.1 FL (80.0-100.0); MEAN CORPUSCULAR HEMOGLOBIN 28.4 PG (27.0-34.0); MEAN CORPUSCULAR HGB CONC 33.4 % (32.0-36.0); MONO % 6.4 % (0.0-8.0); PLATELET COUNT 277 TH/MM3 (150-450); RED BLOOD COUNT 4.75 MIL/MM3 (4.00-5.30); RED CELL DISTRIBUTION WIDTH 14.1 % (11.6-17.2); WHITE BLOOD COUNT 6.1 TH/MM3 (4.0-11.0)
[2017-02-13 21:37] LABS: BLOOD, URINE NEG (NEG); COMMENT (UR) CULT NOT INDICATED; CULTURE IF INDICATED CULT NOT INDICATED; GLUCOSE,URINE NEG (NEG); KETONE, URINE NEG (NEG); MUCUS URINE FEW /lpf (OCC); NITRITE,URINE NEG (NEG); PH, URINE 6.5 (5.0-8.5); SQUAMOUS EPITHELIAL CELL URINE 2 /hpf (0-5); URINE COLOR YELLOW (YELLW/STRAW)
[2017-02-13 21:43] LABS: BICARBONATE 26.1 MEQ/L (21.0-32.0); POTASSIUM 3.5 MEQ/L (3.5-5.1)
[2017-02-13] MEDS ORDERED: CYCL10TA PO (22:05)
== END 2017-02-13 22:35 | disposition home or self-care (01) ==
LOC: NEPD 20:27
DX: R25.2 Cramp and spasm (principal); E87.6 Hypokalemia; M32.9 Systemic lupus erythematosus, unspecified; I10 Essential (primary) hypertension; E11.9 Type 2 diabetes mellitus without complications; K21.9 Gastro-esophageal reflux disease without esophagitis; Z79.82 Long term (current) use of aspirin; Z86.718 Personal history of other venous thrombosis and embolism; Z79.899 Other long term (current) drug therapy
CPT/HCPCS: 80048; 81001; 82550; 83735; 84703; 85025; 96360; 99284; J7030

== ENCOUNTER 2017-03-25 09:32 | Emergency (ER) | payer MEDICAID ==
[~2017-03-25 09:32] MED LIST changes: +CYCL10TA PO
[2017-03-25 09:34] VITALS: BP 137/91; PULSE 73; RESP 18; TEMP 98.6; O2SAT 99
[2017-03-25] MEDS ORDERED: ACETAMINOPHEN/HYDROcodone 325 MG/5 MG TAB PO ONE (10:00)
[2017-03-25] MEDS ORDERED: SULFAMETHOXAZOLE-TRIMETHOPRIM DS 800-160 MG TAB PO ONE (10:00)
--- NOTE | 2017-03-25 10:07 | PD ---
HPI Chief Complaint: Oral / Dental Pain or Problem Time Seen by Provider: 09:44 Travel History International Travel<30 days: No Contact w/Intl Traveler<30days: No Traveled to known affect area: No History of Present Illness HPI 27-year-old female with a history of lupus presents to emergency department complaining of right upper dental pain for 2 weeks. Patient states that she woke up with this pain and decided to come to the [facility] department today because of the pain. Patient states she does have chills but denies fevers. Patient was evaluated by her dentist 2 months ago and states he said "there is nothing wrong". Patient does have an appointment with her dentist in 2 weeks. Patient caught her primary care physician, Dr. Amado and is unable to get an appointment until after . Patient is currently taking metformin, metoprolol, prednisone, Plaquenil. Patient states she was previously given antibiotics and pain medication but did not seem to resolve her symptoms. PFSH Past Medical History Autoimmune Disease: Yes (LUPUS ) Cardiovascular Problems: Yes (HTN) Diabetes: Yes Diminished Hearing: No Deep Vein Thrombosis: Yes GERD: Yes Hypertension: Yes Past Surgical History Section: Yes (X2) Social History Alcohol Use: No Tobacco Use: No Substance Use: No Allergies-Medications (Allergen,Severity, Reaction): Coded Allergies: naproxen (Verified Allergy, Severe, 02/13/17) SOB. HIVES tramadol (Verified Allergy, Severe, 02/13/17) SOB, HIVES Reported Meds & Prescriptions Reported Meds & Active Scripts Active Bactrim DS (Sulfamethoxazole-Trimethoprim) 800-160 Mg Tab 1 Tab PO BID Meclizine (Meclizine HCl) 25 Mg Tab 25 Mg PO TID PRN Reported Metoprolol Tartrate 25 Mg Tab 25 Mg PO DAILY Ranitidine (Ranitidine HCl) 150 Mg Tab 150 Mg PO BID Aspir-81 (Aspirin) 81 Mg Tabdr Prednisone 10 Mg Tab 20 Mg PO BID Metformin (Metformin HCl) 500 Mg Tab 500 Mg PO BIDPC With meals Review of Systems Except as stated in HPI: all other systems reviewed are Neg Physical Exam Narrative GENERAL: Well-developed well-nourished in mild distress SKIN: Focused skin assessment warm/dry. HEAD: Atraumatic. Normocephalic. EYES: Pupils equal and round. No scleral icterus. No injection or drainage. ENT: No nasal bleeding or discharge. Mucous membranes pink and moist. THROAT: No pharyngeal injection, exudates, or tonsillar hypertrophy. Airway is patent. Dentition without significant dental caries. No areas of fluctuance or tenderness upon palpation of the gums or teeth. NECK: Trachea midline. No JVD. No lymphadenopathy Left maxillary- mild edema with erythema, mild TTP over cheek. CARDIOVASCULAR: Regular rate and rhythm. No murmur appreciated. RESPIRATORY: No accessory muscle use. Clear to auscultation. Breath sounds equal bilaterally. BACK: No CVA tenderness. No rash. No point tenderness on palpation of the spine. NEUROLOGICAL: Awake and alert. No obvious cranial nerve deficits. Motor grossly within normal limits. Normal speech. PSYCHIATRIC: Appropriate mood and affect; insight and judgment normal. Data Data Last Documented VS Vital Signs Date Time Temp Pulse Resp B/P (MAP) Pulse Ox O2 Delivery O2 Flow Rate FiO2 03/25/17 10:31 03/25/17 09:34 98.6 73 18 99 Room Air Orders Orders Acetamin-Hydrocod 325-5 Mg ([place] 5-325 (03/25/17 10:00) Sulfamet-Trimeth Ds 800-160 Mg (Bactrim (03/25/17 10:00) Ed Discharge Order (03/25/17 10:07) MDM Medical Decision Making Medical Screen Exam Complete: Yes Emergency Medical Condition: Yes Differential Diagnosis Right upper Dental abscess, sinusitis, cellulitis, erysipelas Narrative Course 27-year-old female with a history of lupus presents to emergency department complaining of right upper dental pain for 2 weeks. Patient states that she woke up with this pain and decided to come to the emergency department today because of the pain. Patient states she does have chills but denies fevers. Denies chest pain, shortness of breath, or neck pain. Patient was evaluated by her dentist 2 months ago and states he said "there is nothing wrong". Patient does have an appointment with her dentist in 2 weeks. Patient follows her primary care physician, Dr. Amado and is unable to get an appointment until after Rule. Patient is currently taking metformin, metoprolol, prednisone , Plaquenil. Patient states she was previously given antibiotics and pain medication but did not seem to resolve her symptoms. Vital signs stable. Physical exam findings consistent with a high dental abscess versus sinusitis. I discussed risks versus benefit of imaging studies and we both agreed to try a course of antibiotics prior to imaging. Patient has lupus and likely will have complications requiring multiple scans in her lifetime. Patient will be discharged with Bactrim for concern of a high dental abscess versus sinusitis. Patient is not complaining of respiratory symptoms however, because patient has been evaluating the dentist and states he has found nothing previously, we'll treat for sinusitis left maxillary region. Strongly advised patient to follow up with primary care physician within one week as scheduled. Advised that if symptoms persist or worsen to return to the emergency department. Consider imaging of the sinuses if worsening symptoms. Again we discussed the risks versus benefit of imaging today however, they both decided it was best to hold off as she has not had a trial of antibiotics for this problem yet. Educated patient on the concerns to look out for regarding infectious process. Diagnosis Primary Impression: Sinusitis Qualified Codes: J01.00 - Acute maxillary sinusitis, unspecified Referrals: [facility]ist Patient Instructions: Abscess (ED), General Instructions, Narcotic given in the ED Departure Forms: Tests/Procedures, Work Release Enter return to work date: Mar 26, 2017 Additional Instructions: Follow up with your primary care physician within 2-3 days. If your symptoms persist or worsen, return to the emergency department. Take all antibiotics as prescribed. Scripts Sulfamethoxazole-Trimethoprim (Bactrim DS) 800-160 Mg Tab 1 TAB PO BID for Infection, #20 TAB 0 Refills Prov: Miriam Luong MD 03/25/17 Disposition: 01 DISCHARGE HOME Condition: Stable Trang Silver Mar 25, 2017 10:07
[2017-03-25] MEDS ORDERED: BACT800T5 PO (10:08)
[2017-03-26] MEDS ORDERED: ROBA750T PO (06:30)
== END 2017-03-25 10:31 | disposition home or self-care (01) ==
LOC: NEPK 09:32
DX: J32.9 Chronic sinusitis, unspecified (principal); M32.9 Systemic lupus erythematosus, unspecified; I10 Essential (primary) hypertension; E11.9 Type 2 diabetes mellitus without complications; K21.9 Gastro-esophageal reflux disease without esophagitis; Z86.718 Personal history of other venous thrombosis and embolism; Z79.82 Long term (current) use of aspirin; Z79.899 Other long term (current) drug therapy; Z88.5 Allergy status to narcotic agent
CPT/HCPCS: 99283

== ENCOUNTER 2017-03-26 04:52 | Emergency (ER) | payer OTHER, MEDICAID ==
[~2017-03-26] VITALS: Ht 162.6 cm; Wt 80.0 kg
[~2017-03-26 04:52] MED LIST changes: +BACT800T5 PO
[2017-03-26 04:58] VITALS: BP 128/71; PULSE 97; RESP 16; TEMP 98.6; O2SAT 96
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
[2017-03-26] MEDS ORDERED: ROBA750T PO (06:30)
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
[2017-03-26 06:46] VITALS: BP 124/90; PULSE 89; RESP 16; O2SAT 96
== END 2017-03-26 06:59 | disposition home or self-care (01) ==
LOC: NEPC 04:52
DX: S20.219A Contusion of unspecified front wall of thorax, initial encounter (principal); S83.91XA Sprain of unspecified site of right knee, initial encounter; S16.1XXA Strain of muscle, fascia and tendon at neck level, initial encounter; V47.5XXA Car driver injured in collision with fixed or stationary object in traffic accident, initial encounter
CPT/HCPCS: 71020; 72050; 72072; 73564; 99284; L1830